=== PATIENT | female | born 1955 | race Caucasian/White ===

== ENCOUNTER → 2016-07-25 | Outpatient (CLI) | payer OTHER | LOC: HEART 5 09:42 | DX: J44.9 Chronic obstructive pulmonary disease, unspecified (principal); R55 Syncope and collapse | CPT/HCPCS: 94060; 94729 ==

== ENCOUNTER → 2016-07-27 | Outpatient (CLI) | payer OTHER | LOC: HEART CORB 07-20 09:00 | DX: R07.2 Precordial pain (principal); R06.02 Shortness of breath | CPT/HCPCS: 78452; A9502; J0280; J2785 ==

== ENCOUNTER → 2020-04-13 | Outpatient (CLI) | payer OTHER | LOC: CT 09:30 | DX: R91.8 Other nonspecific abnormal finding of lung field (principal); R91.1 Solitary pulmonary nodule; K76.9 Liver disease, unspecified | CPT/HCPCS: 71250 ==

== ENCOUNTER → 2021-04-27 | Outpatient (CLI) | payer OTHER | LOC: CT 04-14 13:00 | DX: R91.8 Other nonspecific abnormal finding of lung field (principal) | CPT/HCPCS: 71250 ==